=== PATIENT | male | born 1965 | race African-American/Black ===

== ENCOUNTER → 2016-07-31 | Outpatient (CLI) | payer OTHER ==
--- NOTE | 2016-07-31 08:12 | EKG REPORT ---
SEVERITY:- NORMAL ECG - SINUS RHYTHM : Confirmed by: Ludwig Howe MD 31-Jul-2016 08:12:02
[2016-07-31 08:34] LABS: ABSOLUTE EOSINOPHILS # (AUTO) 0.1 10^3/uL (0.0-0.6); ABSOLUTE LYMPHOCYTES (AUTO) 1.3 10^3/uL (0.5-4.7); ABSOLUTE MONOCYTES (AUTO) 0.5 10^3/uL (0.1-1.4); ABSOLUTE NEUT (AUTO) 2.3 10^3/uL (1.7-8.2); BASOPHILS % (AUTO) 0.6 % (0-2); EOSINOPHILS % (AUTO) 1.5 % (0-6); HEMATOCRIT 42.5 % (37.9-51.0); HGB HCT DIFFERENCE -0.5; LYMPHOCYTES % (AUTO) 30.3 % (13-45); MEAN CORPUSCULAR HEMOGLOBIN 29.2 pg (27.0-33.4); MEAN CORPUSCULAR HGB CONC 32.8 g/dL (32.0-36.0); MEAN CORPUSCULAR VOLUME 89 fl (80-97); MONOCYTES % (AUTO) 12.6 % (3-13); RED BLOOD COUNT 4.77 10^6/uL (4.35-5.55); RED CELL DISTRIBUTION WIDTH 14.2 % (11.5-14.0); WHITE BLOOD COUNT 4.2 10^3/uL (4.0-10.5)
[2016-07-31 08:54] LABS: ALANINE AMINOTRANSFERASE 36 U/L (21-72); ALBUMIN 4.3 g/dL (3.5-5.0); ALKALINE PHOSPHATASE 70 U/L (38-126); ANION GAP 12 (5-19); ASPARTATE AMINO TRANSFERASE 35 U/L (17-59); BILIRUBIN,TOTAL 1.3 mg/dL (0.2-1.3); BLOOD UREA NITROGEN 10 mg/dL (7-20); CALCIUM 9.6 mg/dL (8.4-10.2); CARBON DIOXIDE 27 mmol/L (22-30); CHLORIDE 105 mmol/L (98-107); CREATININE RESULT 1.12 mg/dL (0.52-1.25); Direct HDL 68 mg/dL (>40); GLUCOSE 89 mg/dL (75-110); POTASSIUM 3.9 mmol/L (3.6-5.0); SODIUM 144.1 mmol/L (137-145); TRIGLYCERIDES 58 mg/dL (<150)
[2016-07-31 09:06] LABS: DIRECT LDL 62 mg/dL (<100)
== END ==
LOC: CCC 07:17
DX: I10 Essential (primary) hypertension (principal)
CPT/HCPCS: 36415; 80053; 80061; 83036; 84153; 84443; 85025; 93005; 93010

== ENCOUNTER 2016-08-03 11:42 | Emergency (ER) | payer SELFPAY ==
--- NOTE | 2016-08-03 11:51 | ER Document Report ---
ED Medical Screen (RME) - General Chief Complaint: Hand Pain Stated Complaint: POSSIBLE HAND INFECTION Time seen by provider: 11:50 Mode of Arrival: Ambulatory Information source: Patient Notes: 51-year-old male presents to ED for pain in his right hand. States yesterday around 10:00 a door came off its hinges and hit his hand across the top of the hand. Takes ibuprofen daily. Has not used ice or elevation because he was working. I have greeted and performed a rapid initial assessment of this patient. A comprehensive ED assessment and evaluation of the patient, analysis of test results and completion of medical decision making process will be conducted by an additional ED providers. TRAVEL OUTSIDE OF THE [place] IN LAST 30 DAYS: No - Related Data Allergies/Adverse Reactions: No Known Allergies Allergy (Verified 09/24/14 03:00) Past Medical History - Past Medical History Cardiac Medical History: Reports: Hx Hypertension GI Medical History: Reports: Hx Gastroesophageal Reflux Disease Psychiatric Medical History: Reports: Hx Depression Past Surgical History: Reports: Hx Herniorrhaphy - Immunizations Hx Diphtheria, Pertussis, Tetanus Vaccination: Yes Physical Exam - Vital signs Vitals: Temp Pulse Resp BP Pulse Ox 98.0 F 67 18 142/92 H 98 08/03/16 11:48 08/03/16 11:48 08/03/16 11:48 08/03/16 11:48 08/03/16 11:48 Course - Vital Signs Vital signs: Temp Pulse Resp BP Pulse Ox 98.0 F 67 18 142/92 H 98 08/03/16 11:48 08/03/16 11:48 08/03/16 11:48 08/03/16 11:48 08/03/16 11:48
[2016-08-03] MEDS ORDERED: HYDROCODONE/ACETAMINOPHEN 5-325 MG TABLET PO ONE (11:53)
[2016-08-03] MEDS ORDERED: DIPH/PERTUSS(ACELL)/TETANUS VAC/PF 0.5 ML SYR (>=10YO) IM ONE (13:24)
--- NOTE | 2016-08-03 14:15 | ER Document Report ---
ED Hand/Wrist Injury - General Chief Complaint: Hand Injury Stated Complaint: POSSIBLE HAND INFECTION Mode of Arrival: Ambulatory Information source: Patient Notes: 51-year-old male presents to the emergency department requesting evaluation of laceration/abrasion to dorsal to right hand. Patient reports was in a public bathroom yesterday when a metal door fell over and struck the top of his right hand. Reports localized pain to area worse with movement of the hand. Denies swelling, redness, drainage, weakness, or color changes. States unknown last tetanus vaccination. TRAVEL OUTSIDE OF THE [place] IN LAST 30 DAYS: No - HPI Injury to: Hand Onset: Yesterday Where: Public place Timing: Still present Quality of pain: Achy Severity: Mild Pain Level: 2 Context: Blow - Related Data Allergies/Adverse Reactions: No Known Allergies Allergy (Verified 09/24/14 03:00) Past Medical History - General Information source: Patient - Social History Smoking Status: Never Smoker Frequency of alcohol use: None Drug Abuse: None Lives with: Family Family History: Reviewed & Not Pertinent Patient has suicidal ideation: No Patient has homicidal ideation: No - Past Medical History Cardiac Medical History: Reports: Hx Hypertension Renal/ Medical History: Denies: Hx Peritoneal Dialysis GI Medical History: Reports: Hx Gastroesophageal Reflux Disease Psychiatric Medical History: Reports: Hx Depression Past Surgical History: Reports: Hx Herniorrhaphy - Immunizations Hx Diphtheria, Pertussis, Tetanus Vaccination: Yes Review of Systems - Review of Systems Constitutional: No symptoms reported EENT: No symptoms reported Cardiovascular: No symptoms reported Respiratory: No symptoms reported Gastrointestinal: No symptoms reported Genitourinary: No symptoms reported Male Genitourinary: No symptoms reported Musculoskeletal: See HPI Skin: See HPI Hematologic/Lymphatic: No symptoms reported Neurological/Psychological: No symptoms reported -: Yes All other systems reviewed and negative Physical Exam - Vital signs Vitals: Temp Pulse Resp BP Pulse Ox 98.0 F 67 18 142/92 H 98 08/03/16 11:48 08/03/16 11:48 08/03/16 11:48 08/03/16 11:48 08/03/16 11:48 Interpretation: Normal - General General appearance: Appears well, Alert In distress: None - HEENT Head: Normocephalic, Atraumatic Eyes: Normal Pupils: PERRL - Respiratory Respiratory status: No respiratory distress Chest status: Nontender Breath sounds: Normal Chest palpation: Normal - Cardiovascular Rhythm: Regular Heart sounds: Normal auscultation Murmur: No Pulses: Normal: Radial Normal capillary refill: Yes - Abdominal Inspection: Normal Distension: No distension Bowel sounds: Normal Tenderness: Nontender Organomegaly: No organomegaly - Back Back: Normal, Nontender - Extremities General upper extremity: Normal inspection, Nontender, Normal color, Normal ROM , Normal strength, Normal temperature. No: Tender, Edema General lower extremity: Normal inspection, Nontender, Normal color, Normal ROM , Normal strength, Normal temperature, Normal weight bearing. No: Tender, Edema Wrist: Normal, Nontender Hand: Tender - Small linear superficial laceration/abrasion approximately 2 cm in length to mid dorsal right hand. Mild tenderness with palpation to area. Full active range of motion and neurovascular function intact., Abrasion. No: Normal, Nontender, Deformity, Dislocation, Ecchymosis, Instability, Laceration, Nail injury, No evidence of human bite, No evidence of FB, Swelling, Tendon deficit, Other - Neurological Neuro grossly intact: Yes Cognition: Normal Orientation: AAOx4 [place] Coma Scale Eye Opening: Spontaneous [place] Coma Scale Verbal: Oriented [place] Coma Scale Motor: Obeys Commands [place] Coma Scale Total: 15 Speech: Normal Motor strength normal: LUE, RUE, LLE, RLE Sensory: Normal - Psychological Associated symptoms: Normal affect, Normal mood - Skin Skin Temperature: Warm Skin Moisture: Dry Skin Color: Normal Course - Re-evaluation Re-evalutation: 08/03/16 14:19 Patient hemodynamically stable, in no distress, afebrile. X-rays negative for acute osseous injury. Superficial abrasion not requiring wound repair at this time. Tdap updated. Patient appears so for discharge and agrees with home care , follow-up with PCP, ED return precautions. - Vital Signs Vital signs: Temp Pulse Resp BP Pulse Ox 97.9 F 67 18 133/87 H 99 08/03/16 14:45 08/03/16 14:45 08/03/16 14:45 08/03/16 14:45 08/03/16 14:45 - Diagnostic Test Radiology reviewed: Image reviewed, Reports reviewed Discharge - Discharge Clinical Impression: Abrasion Hand contusion Qualifiers: Encounter type: initial encounter Laterality: right Qualified Code(s): S60.221A - Contusion of right hand, initial encounter Condition: Stable Disposition: HOME, SELF-CARE Instructions: Contusion ([facility]), Abrasions ([facility]), Acetaminophen, Tetanus Immunization Given ([facility]) Additional Instructions: Follow-up with your primary care provider this week. Return to the emergency department for any worsening symptoms or concerns. Forms: Elevated Blood Pressure Referrals: [facility] [Primary Care Provider] - Follow up as needed
[2016-08-03 14:48] VITALS: BP 133/87
== END 2016-08-03 14:50 | disposition home or self-care (01) ==
LOC: ER 11:42
DX: S60.221A Contusion of right hand, initial encounter (principal); W19.XXXA Unspecified fall, initial encounter
CPT/HCPCS: 90471; 90715; 99283

== ENCOUNTER 2016-11-22 07:42 | Emergency (ER) | payer OTHER ==
--- NOTE | 2016-11-22 07:58 | ER Document Report ---
HPI - HPI Patient complains to provider of: sore between toes Pain Level: 3 Context: 51-year-old nondiabetic is complaining of a sore between his left great toe and second toe due to rubbing of the toes in his boots. No fever or chills. No lymphangitis. Associated Symptoms: None Exacerbated by: Other - Work boots Relieved by: Denies Similar symptoms previously: No Recently seen / treated by doctor: No - ROS ROS below otherwise negative: Yes Systems Reviewed and Negative: Yes All other systems reviewed and negative - DERM Skin Color: Normal Past Medical History - General Information source: Patient - Social History Smoking Status: Current Every Day Smoker Frequency of alcohol use: None Drug Abuse: None Lives with: Family Family History: Reviewed & Not Pertinent - Past Medical History Cardiac Medical History: Reports: Hx Hypertension Renal/ Medical History: Denies: Hx Peritoneal Dialysis GI Medical History: Reports: Hx Gastroesophageal Reflux Disease Psychiatric Medical History: Reports: Hx Depression Past Surgical History: Reports: Hx Herniorrhaphy - Immunizations Hx Diphtheria, Pertussis, Tetanus Vaccination: Yes Vertical Provider Document - CONSTITUTIONAL Agree With Documented VS: Yes Exam Limitations: No Limitations - INFECTION CONTROL TRAVEL OUTSIDE OF THE [place] IN LAST 30 DAYS: No - HEENT HEENT: Normocephalic - NECK Neck: Supple - RESPIRATORY O2 Sat by Pulse Oximetry: 96 - MUSCULOSKELETAL/EXTREMETIES Musculoskeletal/Extremeties: MAEW, FROM, Tender - 1cm callous fibular left mid great toe Notes: no erythema - NEURO Level of Consciousness: Awake, Alert Motor/Sensory: No Motor Deficit, No Sensory Deficit - DERM Integumentary: Warm, Dry Course - Vital Signs Vital signs: Temp Pulse Resp BP Pulse Ox 98 F 56 L 16 138/97 H 96 11/22/16 07:44 11/22/16 07:44 11/22/16 07:44 11/22/16 07:44 11/22/16 07:44 Discharge - Discharge Clinical Impression: callous left great toe, refill blood pressure medication Condition: Good Disposition: HOME, SELF-CARE Instructions: High Blood Pressure ([facility]) Additional Instructions: purchase makeup sponges and cut the foam rubber to use as toe separator to keep the left great toe from chronic pressure on the 2nd toe see kiln tender to er if worse Please complete the patient satisfaction survey if you get one, and return it.. If you do not receive a survey, then you can go to the [facility] website, [email or web address] and place your comments about your very good care. Thank you very much. It was a pleasure being your medical provider today. Prescriptions: Amlodipine Besylate [Norvasc 10 mg Tablet] 10 mg PO DAILY #30 tablet Referrals: ANSELMO MACEDO DPM [NO LOCAL MD] - Follow up as needed DAVID MACEDO DPM [ACTIVE STAFF] - Follow up as needed
[2016-11-22] MEDS ORDERED: AMLODIPINE BESYLATE 10 MG TABLET PO ONE (08:46)
[2016-11-22 09:47] VITALS: BP 124/92
== END 2016-11-22 09:10 | disposition home or self-care (01) ==
LOC: ER 07:42
DX: L84 Corns and callosities (principal); I10 Essential (primary) hypertension; Z76.0 Encounter for issue of repeat prescription; F17.200 Nicotine dependence, unspecified, uncomplicated
CPT/HCPCS: 99283

== ENCOUNTER 2017-09-06 18:11 | Emergency (ER) | payer SELFPAY ==
[2017-09-06 22:43] VITALS: BP 128/74
[2017-09-06] MEDS ORDERED: IBUPROFEN 800 MG TABLET PO ONE (23:25)
--- NOTE | 2017-09-06 23:29 | ER Document Report ---
ED Extremity Problem, Lower - General Chief Complaint: Leg Injury Stated Complaint: LEFT LEG PAIN Time Seen by Provider: 09/06/17 20:41 Mode of Arrival: Ambulatory Information source: Patient Notes: 52-year-old male presents to ED for complaint of left leg pain. He states that he injured his leg pain basketball on Wednesday night. He states his leg is been swollen and he is afraid that he has a blood clot in his leg. Measured the bilateral thighs left thigh is 56 cm right thigh is 58 cm; left calf is 38 cm right calf is 37 cm. TRAVEL OUTSIDE OF THE [place] IN LAST 30 DAYS: No - HPI Patient complains to provider of: Injury, Pain, Swelling Location: Knee, Leg, Thigh Occurred: Other - Wednesday Where: Outdoors, Sports Onset/Duration: Intermittent Quality of pain: Sharp Severity: Moderate Pain Level: 4 Context: Other - States he injured it, and down when he was playing basketball on Wednesday. States she has been working and has been able to walk. He did walk with the even steady gait while in the emergency room. Recent injury: Possibly Associated symptoms: Painful ambulation Exacerbated by: Movement, Walking Relieved by: Elevation, Ice, Rest - Related Data Allergies/Adverse Reactions: No Known Allergies Allergy (Verified 09/06/17 18:11) Past Medical History - General Information source: Patient - Social History Smoking Status: Never Smoker Cigarette use (# per day): No Chew tobacco use (# tins/day): No Smoking Education Provided: No Frequency of alcohol use: None Drug Abuse: None Occupation: [employer] Lives with: Parents Family History: Reviewed & Not Pertinent Patient has suicidal ideation: No Patient has homicidal ideation: No - Past Medical History Cardiac Medical History: Reports: Hx Hypertension Pulmonary Medical History: Reports: None EENT Medical History: Reports: None Neurological Medical History: Reports: None Endocrine Medical History: Reports: None Renal/ Medical History: Reports: None Malignancy Medical History: Reports None GI Medical History: Reports: Hx Gastroesophageal Reflux Disease Musculoskeltal Medical History: Reports None Skin Medical History: Reports None Psychiatric Medical History: Reports: Hx Depression Traumatic Medical History: Reports: None Infectious Medical History: Reports: None Past Surgical History: Reports: Hx Herniorrhaphy - Immunizations Hx Diphtheria, Pertussis, Tetanus Vaccination: Yes Review of Systems - Review of Systems Notes: Constitutional: [PRESENT: as per HPI. ABSENT: chills, fever(s), headache(s), weight gain, weight loss] Eyes: [ABSENT: visual disturbances] Ears: [ABSENT: hearing changes] Cardiovascular: [ABSENT: chest pain, dyspnea on exertion, edema, orthropnea, palpitations] Respiratory: [ABSENT: cough, hemoptysis] Gastrointestinal: [ABSENT: abdominal pain, constipation, diarrhea, hematemesis, hematochezia, nausea, vomiting] Genitourinary: [ABSENT: dysuria, hematuria] Musculoskeletal: Pain swelling to the left thigh knee and calf since Wednesday Integumentary: [ABSENT: rash, wounds] Neurological: [ABSENT: abnormal gait, abnormal speech, confusion, dizziness, focal weakness, syncope] Psychiatric: [ABSENT: anxiety, depression, homicidal ideation, suicidal ideation ] Endocrine: [ABSENT: cold intolerance, heat intolerance, menstrual abnormalities , polydipsia, polyuria] Hematologic/Lymphatic: [ABSENT: easy bleeding, easy bruising, lymphadenopathy] Physical Exam - Vital signs Vitals: Temp Pulse Resp BP Pulse Ox 98.7 F 62 18 134/89 H 98 09/06/17 18:15 09/06/17 18:15 09/06/17 18:15 09/06/17 18:15 09/06/17 18:15 - Notes Notes: PHYSICAL EXAMINATION: GENERAL: Well-appearing, well-nourished and in no acute distress. HEAD: Atraumatic, normocephalic. EYES: Pupils equal round and reactive to light, extraocular movements intact, sclera anicteric, conjunctiva are normal. ENT: Nares patent, oropharynx clear without exudates. Moist mucous membranes. NECK: Normal range of motion, supple without lymphadenopathy LUNGS: Breath sounds clear to auscultation bilaterally and equal. No wheezes rales or rhonchi. HEART: Regular rate and rhythm without murmurs ABDOMEN: Soft, nontender, nondistended abdomen. No guarding, no rebound. No masses appreciated. Musculoskeletal: Normal range of motion, no pitting or edema. No cyanosis. Knee exam negative with positive patella tendon intact, no laxity to the knee joint, no swelling noted, left side measured 56 cm right thigh measured 58 cm; left calf measured 38 cm and right calf measured 37 cm. NEUROLOGICAL: Cranial nerves grossly intact. Normal speech, normal gait. Normal sensory, motor exams PSYCH: Normal mood, normal affect. SKIN: Warm, Dry, normal turgor, no rashes or lesions noted. Course - Re-evaluation Re-evalutation: 09/07/17 02:13 Venous Doppler negative. Patient was treated with ibuprofen and instructed to use ibuprofen for his pain. Patient instructed to follow-up with orthopedics. Recent left with the even steady gait walking out. - Vital Signs Vital signs: Temp Pulse Resp BP Pulse Ox 98.1 F 53 L 19 128/74 H 99 09/06/17 22:42 09/06/17 22:42 09/06/17 22:42 09/06/17 22:42 09/06/17 22:42 - Diagnostic Test Radiology reviewed: Image reviewed, Reports reviewed Discharge - Discharge Clinical Impression: Left leg pain, Pain in left thigh Left knee pain Qualifiers: Chronicity: acute Qualified Code(s): M25.562 - Pain in left knee Condition: Stable Disposition: HOME, SELF-CARE Instructions: Family Physicians / Practices Additional Instructions: Leg Pain, Nonspecific We did not find an obvious cause for your leg pain. There's no sign of blood clot, infection, or other serious disease. Possible causes of vague leg pain include muscle or joint inflammation, disc disease in the lower back, pressure on the nerves in the back, or reduced blood flow through the arteries of the leg. Rest the leg. Pain can be eased with an antiinflammatory pain medicine such as ibuprofen. If the pain involves a small area, a heating pad might help. Call the doctor or return if the leg becomes swollen, weak, discolored, or increasingly painful, or if you develop any other significant change in your health. Ibuprofen Ibuprofen is an excellent, safe drug for pain control. In addition, it has potent antiinflammatory effects which are beneficial, especially in the treatment of injuries, arthritis, or tendonitis. It's best to take ibuprofen with food. Persons with ulcer disease or allergy to aspirin should notify their physician of this before taking ibuprofen. Take the medication exactly as prescribed. Don't take additional doses unless instructed to do so by your doctor. If you develop wheezing, shortness of breath, hives, faintness, stomach pain, vomiting, or dark black stools, return for re-evaluation at once. Ice & Elevation Apply ice packs frequently against the painful area. Many different schedules are recommended, such as "20 minutes on, 20 minutes off" or "one hour ice, two hours rest." If you need to work, you may need to go longer between ice treatments. You should plan to have the area ice packed AT LEAST one- fourth of the time. The ice should be applied over the wrap, tape, or splint, or over a layer of cloth -- not directly against the skin. Some ice bags have a built-in cloth and can be put directly on the skin. Your injured part should be elevated as much as possible over the next 48 hours. Try to keep the injury above the level of the heart. Avoid use of the injured area. Elevation and rest will decrease the swelling. FOLLOW-UP CARE: If you have been referred to a physician for follow-up care, call the physician s office for an appointment as you were instructed or within the next two days. If you experience worsening or a significant change in your symptoms, notify the physician immediately or return to the Emergency Department at any time for re-evaluation. Forms: Elevated Blood Pressure Referrals: HAL AMES MD [ACTIVE STAFF] - Follow up as needed
--- NOTE | 2017-09-07 08:17 | RADIOLOGY REPORT (SQ) ---
EXAM DESCRIPTION: VENOUS UNILATERAL LOWER COMPLETED DATE/TIME: 09/06/2017 10:44 pm REASON FOR STUDY: left leg pain and swelling COMPARISON: None. TECHNIQUE: Dynamic and static randolph scale and color images acquired of the left leg venous system. Se lected spectral images acquired with additional compression and augmentation maneuvers. The contralat eral common femoral vein and saphenofemoral junction were also imaged. Images stored on PACS. LIMITATIONS: None. FINDINGS: LEFT COMMON FEMORAL: Normal phasicity, compression and augmentation. No visualized echogenic material on g ray scale. No defects on color images. FEMORAL: Normal compression and augmentation. No visualized echogenic material on randolph scale. No defe cts on color images. POPLITEAL: Normal compression, augmentation. No visualized echogenic material on randolph scale. No defec ts on color images. CALF VESSELS: Normal compression, augmentation. No visualized echogenic material on randolph scale. No de fects on color images. GSV and SSV: Normal compression, augmentation. No visualized echogenic material on randolph scale. No def ects on color images. ANY DEEP VENOUS INSUFFICIENCY: Not evaluated. ANY EVIDENCE OF POPLITEAL CYST: No. OTHER: No other significant finding. RIGHT COMMON FEMORAL VEIN AND SAPHENOFEMORAL JUNCTION: Normal phasicity, compression and augmentation. No visualized echogenic material on randolph scale. No de fects on color images. IMPRESSION: NO EVIDENCE OF DVT OR SVT IN THE LEFT LEG. TECHNICAL DOCUMENTATION: JOB ID: [id number] [employer]- All Rights Reserved Reading location - IP/workstation name: [email or web address]
== END 2017-09-06 23:43 | disposition home or self-care (01) ==
LOC: ER 18:11
DX: M79.652 Pain in left thigh (principal); M25.562 Pain in left knee; M79.605 Pain in left leg; X58.XXXA Exposure to other specified factors, initial encounter; Y93.67 Activity, basketball; I10 Essential (primary) hypertension
CPT/HCPCS: 93971; 99284

== ENCOUNTER 2018-03-30 18:28 | Emergency (ER) | payer SELFPAY ==
[2018-03-30] MEDS ORDERED: LIDOCAINE 1% INJ-PF (10 MG/ML) 30 ML SDV INJ ONE (20:02)
--- NOTE | 2018-03-30 20:08 | ER Document Report ---
HPI - HPI Pain Level: 3 Notes: Patient is a 53-year-old male with no significant past medical history who presents to the ED complaining of an abscess to his left axilla 2 weeks. Patient states that he was able to get a lot of drainage out of it the other day and it is feeling much better. Patient does not have any associated pain at this time. Patient states that he is having a smaller one starting to develop just to the North of it. He denies any drug allergies or history of MRSA. Patient does shave his armpits. Denies any headache, fever, URI, sore throat, chest pain, palpitations, syncope, cough, shortness of breath, wheeze, dyspnea, abdominal pain, nausea/vomiting/diarrhea, urinary retention, dysuria, hematuria, numbness/tingling, muscle paralysis/weakness. - ROS Systems Reviewed and Negative: Yes All other systems reviewed and negative Past Medical History - Social History Smoking Status: Never Smoker Family History: Reviewed & Not Pertinent - Past Medical History Cardiac Medical History: Reports: Hx Hypertension Renal/ Medical History: Denies: Hx Peritoneal Dialysis GI Medical History: Reports: Hx Gastroesophageal Reflux Disease Psychiatric Medical History: Reports: Hx Depression Past Surgical History: Reports: Hx Herniorrhaphy - Immunizations Hx Diphtheria, Pertussis, Tetanus Vaccination: Yes Vertical Provider Document - CONSTITUTIONAL Agree With Documented VS: Yes Notes: PHYSICAL EXAMINATION: GENERAL: Well-appearing, well-nourished and in no acute distress. LUNGS: Breath sounds clear to auscultation bilaterally and equal. No wheezes rales or rhonchi. HEART: Regular rate and rhythm without murmurs, rubs, gallops. Musculoskeletal: FROM to passive/active. Strength 5+/5. Extremities: No cyanosis, clubbing, or edema b/l. Peripheral pulses 2+. Capillary refill less than 3 seconds. NEUROLOGICAL: Cranial nerves grossly intact. Normal speech, normal gait. Normal sensory, motor exams PSYCH: Normal mood, normal affect. SKIN: Left axilla: there is a 3cm indurated abscess noted w/o obvious fluctuance. + minimal tenderness associated. There is a smaller 0.5cm area superiorly. No discharge, streaks, or excessive warmth at this time. - INFECTION CONTROL TRAVEL OUTSIDE OF THE [place] IN LAST 30 DAYS: No Course - Re-evaluation Re-evalutation: 03/30/18 20:34 Patient is an afebrile, well-hydrated, 53-year-old male who presents to the ED with an abscess to his left axilla. Vitals are acceptable without any significant tachycardia, tachypnea, or hypoxia. PE is otherwise unremarkable. I&D was performed successfully and packing was placed. Wound culture was obtained. Patient tolerated procedure well without any complications. Wound dressing was placed and wound instructions reviewed. No further labs or imaging warranted at this time based on H&P. Recheck with your PCM/ED in 2-3 days. Return to the ED with any worsening/concerning symptoms otherwise as reviewed in discharge. Patient is in agreement. - Vital Signs Vital signs: Temp Pulse Resp BP Pulse Ox 98.1 F 63 18 135/92 H 98 03/30/18 19:02 03/30/18 19:02 03/30/18 19:02 03/30/18 19:02 03/30/18 19:02 Procedures - Incision and Drainage Left axilla Time completed: 20:30 - Patient tolerated procedure well without any complications Type: Simple Anesthetic type: 1% Lidocaine mL's of anesthetic: 8 I&D procedure: Other - Chlorhexidine/saline Incision Method: Incision made by scalpel Amount/type of drainage: Scant purulent, primarily bloody Discharge - Discharge Clinical Impression: Abscess Condition: Stable Disposition: HOME, SELF-CARE Instructions: Abscess ([facility]), Cephalexin ([facility]), Post Incision and Drainage, Trimethoprim-Sulfa ([facility]) Additional Instructions: Do not shower or bathe for 24 hours. After 24 hours she may shower but no submersion of the wound under water. Keep the original dressing on the wound for 24 hours unless the drainage soaks through. Change the dressing daily thereafter and use a small amount of triple antibiotic ointment over the open wound. Return to the ED and/or your PCM in 2-3 days for recheck and continue direction for wound packing. Monitor for any signs of worsening pain or redness , streaks, and/or fever. Return to the ED if noticing any of the above symptoms or as needed. Take medications as directed. Prescriptions: Cephalexin Monohydrate [Keflex 500 mg Capsule] 500 mg PO TID #30 capsule Sulfamethoxazole/Trimethoprim [Bactrim Ds Tablet] 1 each PO BID #20 tablet Forms: Elevated Blood Pressure Referrals: [facility] [Provider Group] - Follow up as needed [facility] [Provider Group] - Follow up as needed
[2018-03-30] MEDS ORDERED: CEPHALEXIN 500 MG CAPSULE PO ONE (20:35)
[2018-03-30] MEDS ORDERED: SULFAMETHOXAZOLE/TRIMETHOPRIM 800-160 MG TABLET PO ONE (20:35)
[2018-03-30] MEDS ORDERED: MORPHINE SULFATE IR 15 MG TABLET PO ONE (20:43)
[2018-03-30] MEDS ORDERED: HYDROCODONE/ACETAMINOPHEN 5-325 MG (6 TAB/ER DISP) PO PRN (20:43)
[2018-03-30 21:12] VITALS: BP 125/89
== END 2018-03-30 21:13 | disposition home or self-care (01) ==
LOC: ER 18:28
PROC: 0H9CXZZ Drainage of Left Upper Arm Skin, External Approach (ICD-10-PCS; principal; 2018-03-30)
DX: L02.412 Cutaneous abscess of left axilla (principal)
CPT/HCPCS: 99283; 87070; 87205; 87077; 87186; 10060; A6266; J3490

== ENCOUNTER 2018-04-03 07:31 | Emergency (ER) | payer SELFPAY ==
--- NOTE | 2018-04-03 09:40 | ER Document Report ---
ED Wound - General Chief Complaint: Wound Recheck Stated Complaint: WOUND RECHECK Time Seen by Provider: 04/03/18 09:37 Information source: Patient Notes: Patient is a 53-year-old male with incision and drainage of a left axillary abscess on Wednesday. He states that the packing is still in place as he was told not to remove it. He states the pain is improved. He denies any nausea, vomiting, or fevers. TRAVEL OUTSIDE OF THE [place] IN LAST 30 DAYS: No - HPI Patient complains to provider of: Other - See above Occurred: Other - See above Quality of pain: Achy Severity: Mild Pain Level: Denies Sensations intact: Yes Associated Symptoms: Other - See above - Related Data Allergies/Adverse Reactions: No Known Allergies Allergy (Verified 04/03/18 07:44) Past Medical History - Social History Smoking Status: Never Smoker Chew tobacco use (# tins/day): No Frequency of alcohol use: Occasional Drug Abuse: None Family History: Reviewed & Not Pertinent Patient has suicidal ideation: No Patient has homicidal ideation: No - Past Medical History Cardiac Medical History: Reports: Hx Hypertension Renal/ Medical History: Denies: Hx Peritoneal Dialysis GI Medical History: Reports: Hx Gastroesophageal Reflux Disease Psychiatric Medical History: Reports: Hx Depression Past Surgical History: Reports: Hx Herniorrhaphy - Immunizations Hx Diphtheria, Pertussis, Tetanus Vaccination: Yes Physical Exam - Vital signs Vitals: Temp Pulse Resp BP Pulse Ox 97.8 F 67 16 135/87 H 97 04/03/18 07:35 04/03/18 07:35 04/03/18 07:35 04/03/18 07:35 04/03/18 07:35 Notes: Reviewed vital signs and nursing note as charted by RN. SKIN: Patient has a left axillary abscess showing a previous incision and drainage with package in place. I removed the packing. No drainage, fluctuance , or induration. Minimal tenderness that he states is much improved. Course - Re-evaluation Re-evalutation: 04/03/18 09:40 Given the history and physical examination, I do not believe that the patient needs any extension of the I&D at this time. Patient will complete the antibiotics. - Vital Signs Vital signs: Temp Pulse Resp BP Pulse Ox 97.8 F 67 16 135/87 H 97 04/03/18 07:35 04/03/18 07:35 04/03/18 07:35 04/03/18 07:35 04/03/18 07:35 Discharge - Discharge Clinical Impression: Abscess of left axilla, Wound check, abscess Condition: Good Disposition: HOME, SELF-CARE Instructions: Post Incision and Drainage Additional Instructions: Come back immediately with any increased pain, swelling, redness, fever, or any other acute problems. Please complete the antibiotics as discussed.
[2018-04-03 09:48] VITALS: BP 132/102
== END 2018-04-03 09:48 | disposition home or self-care (01) ==
LOC: ER 07:31
DX: L02.412 Cutaneous abscess of left axilla (principal); Z48.01 Encounter for change or removal of surgical wound dressing; I10 Essential (primary) hypertension
CPT/HCPCS: 99282

== ENCOUNTER 2019-07-17 18:34 | Emergency (ER) | payer SELFPAY ==
[2019-07-17 19:35] VITALS: BP 142/102
[2019-07-17] MEDS ORDERED: ONDANSETRON 4 MG TAB.RAPDIS PO ONE (20:01)
[2019-07-17] MEDS ORDERED: BUTALB/ACETAMINOPHEN/CAFFEINE 1 TAB EACH PO ONE (20:01)
--- NOTE | 2019-07-17 20:03 | ER Document Report ---
ED Medical Screen (RME) - General Chief Complaint: Flu Symptoms Stated Complaint: FLU SYMPTOMS Time Seen by Provider: 07/17/19 19:55 Mode of Arrival: Ambulatory Information source: Patient Notes: Patient presents complaining of fever body aches and headaches for the past 3 days. Patient states he has had nausea and diarrhea. Patient denies any vomiting. Patient complains of cough and low back pain. Patient reports having diarrhea x2 episodes today. Patient denies any abdominal tenderness. I have greeted and performed a rapid initial assessment of this patient. A comprehensive ED assessment and evaluation of the patient, analysis of test results and completion of the medical decision making process will be conducted by additional ED providers. TRAVEL OUTSIDE OF THE [place] IN LAST 30 DAYS: No - Related Data Allergies/Adverse Reactions: No Known Allergies Allergy (Verified 07/17/19 19:52) Home Medications: Supposed to take BP meds, but isn't Past Medical History - Past Medical History Cardiac Medical History: Reports: Hx Hypertension Renal/ Medical History: Denies: Hx Peritoneal Dialysis GI Medical History: Reports: Hx Gastroesophageal Reflux Disease Psychiatric Medical History: Reports: Hx Depression Past Surgical History: Reports: Hx Herniorrhaphy - Immunizations Hx Diphtheria, Pertussis, Tetanus Vaccination: Yes Physical Exam - Vital signs Vitals: Temp Pulse Resp BP Pulse Ox 99.0 F 79 18 142/102 H 98 07/17/19 19:34 07/17/19 19:34 07/17/19 19:34 07/17/19 19:34 07/17/19 19:34 - Respiratory Respiratory status: No respiratory distress Breath sounds: Normal Course - Vital Signs Vital signs: Temp Pulse Resp BP Pulse Ox 99.0 F 79 18 142/102 H 98 07/17/19 19:34 07/17/19 19:34 07/17/19 19:34 07/17/19 19:34 07/17/19 19:34
[2019-07-17 20:26] LABS: APPEARANCE,URINE CLEAR; BILIRUBIN,URINE NEGATIVE (NEGATIVE); COLOR,URINE YELLOW; GLUCOSE, URINE NEGATIVE (NEGATIVE); KETONES,URINE TRACE mg/dL (NEGATIVE); LEUKOCYTE ESTERASE,URINE NEGATIVE (NEGATIVE); NITRITE,URINE NEGATIVE (NEGATIVE); PROTEIN,URINE NEGATIVE (NEGATIVE); URINE SPECIFIC GRAVITY 1.024; UROBILINOGEN,URINE NEGATIVE mg/dL (<2.0)
[2019-07-17 20:56] LABS: A TYPE INFLUENZA AG POSITIVE (NEGATIVE); B INFLUENZA AG NEGATIVE (NEGATIVE)
--- NOTE | 2019-07-17 20:57 | RADIOLOGY REPORT (SQ) ---
EXAM DESCRIPTION: [facility]: XR CHEST 2 VIEWS Views: 2 CLINICAL HISTORY: 54 years Male, cough COMPARISON: 03/19/2016 FINDINGS: The lungs are clear. No pneumothorax or significant pleural effusion. Cardiomediastinal silhouette is within normal limits. Bony structures are unremarkable for age. IMPRESSION: 1. No acute cardiothoracic abnormality.
[2019-07-17] MEDS ORDERED: OSELTAMIVIR PHOSPHATE 75 MG CAPSULE PO ONE (21:14)
--- NOTE | 2019-07-17 21:15 | ER Document Report ---
ED General - General Chief Complaint: Flu Symptoms Stated Complaint: FLU SYMPTOMS Time Seen by Provider: 07/17/19 19:55 Mode of Arrival: Ambulatory TRAVEL OUTSIDE OF THE [place] IN LAST 30 DAYS: No - HPI Onset: Last week Onset/Duration: Gradual Quality of pain: Achy Severity: Mild Pain Level: 1 Context: 54 year old male recently traveled home from [place] and [place] 2 days ago began feeling achey and having a fever. No comorbidities. No rash and no tick bite. Associated symptoms: Chills, Fever Exacerbated by: Denies Relieved by: Denies - Related Data Allergies/Adverse Reactions: No Known Allergies Allergy (Verified 07/17/19 19:52) Home Medications: Supposed to take BP meds, but isn't Past Medical History - General Information source: Patient - Social History Smoking Status: Never Smoker Family History: Reviewed & Not Pertinent Patient has suicidal ideation: No Patient has homicidal ideation: No - Past Medical History Cardiac Medical History: Reports: Hx Hypertension Renal/ Medical History: Denies: Hx Peritoneal Dialysis GI Medical History: Reports: Hx Gastroesophageal Reflux Disease Psychiatric Medical History: Reports: Hx Depression Past Surgical History: Reports: Hx Herniorrhaphy - Immunizations Hx Diphtheria, Pertussis, Tetanus Vaccination: Yes Review of Systems - Review of Systems Constitutional: Fever, Malaise, Weakness EENT: No symptoms reported Cardiovascular: No symptoms reported Respiratory: No symptoms reported Gastrointestinal: No symptoms reported Genitourinary: No symptoms reported Male Genitourinary: No symptoms reported Musculoskeletal: Joint pain Skin: No symptoms reported Hematologic/Lymphatic: No symptoms reported Neurological/Psychological: No symptoms reported Physical Exam - Vital signs Vitals: Temp Pulse Resp BP Pulse Ox 99.0 F 79 18 142/102 H 98 07/17/19 19:34 07/17/19 19:34 07/17/19 19:34 07/17/19 19:34 07/17/19 19:34 Interpretation: Normal - General General appearance: Appears well, Alert - HEENT Head: Normocephalic, Atraumatic Eyes: Normal Pupils: PERRL - Respiratory Respiratory status: No respiratory distress Chest status: Nontender Breath sounds: Normal Chest palpation: Normal - Cardiovascular Rhythm: Regular Heart sounds: Normal auscultation Murmur: No - Abdominal Inspection: Normal Distension: No distension Bowel sounds: Normal Tenderness: Nontender Organomegaly: No organomegaly - Back Back: Normal, Nontender - Extremities General upper extremity: Normal inspection, Nontender, Normal color, Normal ROM, Normal temperature General lower extremity: Normal inspection, Nontender, Normal color, Normal ROM, Normal temperature, Normal weight bearing. No: Wang's sign - Neurological Neuro grossly intact: Yes Cognition: Normal Orientation: AAOx4 Vincenzo Coma Scale Eye Opening: Spontaneous [place] Coma Scale Verbal: Oriented [place] Coma Scale Motor: Obeys Commands Vincenzo Coma Scale Total: 15 Speech: Normal Motor strength normal: LUE, RUE, LLE, RLE Sensory: Normal - Psychological Associated symptoms: Normal affect, Normal mood - Skin Skin Temperature: Warm Skin Moisture: Dry Skin Color: Normal Course - Re-evaluation Re-evalutation: 07/17/19 21:39 54 year old male with Influenza A. Feeling improved. Nontoxic here. Feel safe for follow up. Discussed this and he expressed understanding. - Vital Signs Vital signs: Temp Pulse Resp BP Pulse Ox 99.0 F 79 18 142/102 H 98 07/17/19 19:34 07/17/19 19:34 07/17/19 19:34 07/17/19 19:34 07/17/19 19:34 - Laboratory Laboratory results interpreted by me: 07/17/19 20:02 Urine Ketones TRACE H Urine Ascorbic Acid 20 H Discharge - Discharge Clinical Impression: Influenza A Condition: Good Disposition: HOME, SELF-CARE Instructions: Acetaminophen, Influenza (ON LICENSE OF [facility]) [id number] Additional Instructions: Rest, clear liquids as described. See your doctor in follow up. Return here for any problems or any concerns. Take the tamiflu as directed. Prescriptions: Oseltamivir Phosphate [Tamiflu 75 mg Capsule] 75 mg PO DAILY #4 capsule Oseltamivir Phosphate [Tamiflu 75 mg Capsule] 75 mg PO BID #9 capsule
== END 2019-07-17 21:56 | disposition home or self-care (01) ==
LOC: ER 18:34
DX: J10.1 Influenza due to other identified influenza virus with other respiratory manifestations (principal); R50.9 Fever, unspecified; M25.50 Pain in unspecified joint; R53.1 Weakness; R53.81 Other malaise; I10 Essential (primary) hypertension
CPT/HCPCS: 99283; 81001; 87804; 71046; J3490 ×2; S0119